=== PATIENT | male | born 1985 | race Caucasian/White ===

== ENCOUNTER 2016-10-29 20:12 | Emergency (ER) | payer BC ==
--- NOTE | ~2016-10-29 | ER ---
PATIENT'S NAME: LUZ SKINNER [facility] AGE: 31 Y [address] ROOM: [place] [address] LOCATION: ED ADMIT DATE: 10/29/2016 ER/Outpatient Report DISCHARGE DATE: 10/29/2016 FAMILY PHYSICIAN: Eren Ashley MD ATTENDING PHYSICIAN: Brian Holland Time of Arrival: 2012 hours. Time of Evaluation: 2030 hours. CHIEF COMPLAINT: Left ear pain. HISTORY OF PRESENT ILLNESS: This is a 31-year-old male, who presents to the ER. He states he has been having upper respiratory symptoms for approximately a week, and then the last 2 days, he has had severe left ear pain. He has not been running any fevers at home. He states he has had several ear infections in the past since he was a kid. He states that he has not been able to sleep because of the pain, and he denies any other problems at this time. ALLERGIES: NO KNOWN ALLERGIES. MEDICATIONS: 1. Lexapro. 2. Bupropion. PAST MEDICAL HISTORY: Anxiety, multiple ear infections in the past. PAST SURGICAL HISTORY: Left ankle fracture. SOCIAL HISTORY: Denies smoking, drug, or alcohol use. REVIEW OF SYSTEMS: A 10-point review of systems was completed and was negative with the exception of those discussed in the HPI. PHYSICAL EXAMINATION: VITAL SIGNS: Height 6 feet 3 inches stated, weight 141 kg taken, blood pressure is 144/74, pulse 90, respirations 16, temperature 99.1 degrees tympanically, saturations 97% on room air. Bath Coma Score is 15. GENERAL: Alert, calm, well-developed male, in mild distress. PATIENT'S NAME: LUZ SKINNER [facility] AGE: 31 Y [address] ROOM: [place] [address] LOCATION: ED ADMIT DATE: 10/29/2016 ER/Outpatient Report DISCHARGE DATE: 10/29/2016 FAMILY PHYSICIAN: Eren Ashley MD ATTENDING PHYSICIAN: Brian Holland. Head: Normocephalic. Eyes: Pupils are equal and reactive to light. Ears: Left TM is erythematic and bulging. Right TM is clear. Nose: Turbinates pink with clear drainage. Throat: No exudates or erythema. Does display moist mucous membranes. LUNGS: Clear to auscultation bilaterally. No wheezes or crackles. Normal respiratory effort. HEART: Regular rate and rhythm. EXTREMITIES: No clubbing, cyanosis, or edema. He has full range of motion of all limbs. LABORATORY DATA AND X-RAYS: None were done. IMPRESSION: 1. Left otitis media. 2. Upper respiratory infection. ASSESSMENT AND PLAN: We did give the patient Rocephin 2 g IM here in the emergency room. I will dismiss the patient to home with prescriptions for amoxicillin and Shannon to use as directed. He may alternate this pain medication as needed with ibuprofen. Continue to push fluids. Monitor his symptoms. Follow up with his primary care physician if he does not improve. The patient understands and agrees with care. DEANNA ROUSE PA-C FOR DO DURGA ALLISON/yohannes /[id number] d: 10/30/16 0255 t: 11/02/16 1900, OUTPATIENT REPORT
== END 2016-10-29 20:50 | disposition disaster alternative care site (69) ==
LOC: GMED 20:12
DX: H66.92 Otitis media, unspecified, left ear (principal); J06.9 Acute upper respiratory infection, unspecified; F41.9 Anxiety disorder, unspecified; Z98.890 Other specified postprocedural states; Z79.899 Other long term (current) drug therapy
CPT/HCPCS: J0696